=== PATIENT | male | born 1950 | race Caucasian/White ===

== ENCOUNTER 2017-04-18 12:34 | Emergency (ER) | payer MEDICARE, MEDICAID ==
[~2017-04-18] VITALS: Ht 165.1 cm; Wt 74.8 kg
[2017-04-18] MEDS ORDERED: LISI1TAB11 PO (12:51)
[2017-04-18] MEDS ORDERED: METF500T4 PO (12:51)
--- NOTE | 2017-04-18 13:14 | NUR ---
Dr Reinoso at the bedside for eval and exam.
[2017-04-18 13:30] LABS: BASOPHILS % (AUTO) 0.5 % (0.0-2.0); EOSINOPHILS # (AUTO) 0.2 K/uL (0.0-0.7); EOSINOPHILS % (AUTO) 2.8 % (0.0-7.0); HEMATOCRIT 49.3 % (40-50); HEMOGLOBIN 16.8 G/DL (14.0-18.0); LYMPHOCYTES # (AUTO) 1.9 K/UL (0.8-4.8); LYMPHOCYTES % (AUTO) 29.9 % (20.5-51.5); MEAN CORPUSCULAR HEMOGLOBIN 31.3 UUG (27.0-31.0); MEAN CORPUSCULAR HGB CONC 34 g/dL (32.0-37.0); MONOCYTES # (AUTO) 0.4 K/UL (0.1-1.30); MONOCYTES % (AUTO) 5.9 % (0.0-11.0); NEUTROPHILS # (AUTO) 3.9 K/UL (1.8-8.9); NEUTROPHILS % (AUTO) 60.9 % (38.5-71.5); PLATELET COUNT (AUTO) 166 K/UL (150-450); RED BLOOD CELL COUNT(AUTO) 5.37 MIL/UL (4.7-6.1); WHITE BLOOD COUNT (AUTO) 6.4 K/UL (4.0-11.2)
[2017-04-18 13:39] LABS: CREATININE 1.2 mg/dL (0.6-1.3)
[2017-04-18 13:44] LABS: BILIRUBIN,DIRECT 0.1 mg/dL (0.0-0.2); BILIRUBIN,TOTAL 0.7 mg/dL (0.2-1.0); TOTAL PROTEIN, SERUM 7.4 g/dL (6.4-8.2)
[2017-04-18 14:09] LABS: *BILIRUBIN,URIN NEGATIVE (NEGATIVE); *BLOOD, URINE NEGATIVE (NEGATIVE); *CLARITY,URINE CLEAR (CLEAR); *COLOR,URINE YELLOW (YELLOW); *KETONES,URINE NEGATIVE (NEGATIVE); *PROTEIN,URINE NEGATIVE (NEGATIVE); *UROBILINOGEN,URINE 0.2 E.U./dl (NORMAL); LEUKOCYTE ESTERASE ,URINE NEGATIVE (NEGATIVE); NITRITE, URINE NEGATIVE (NEGATIVE)
[2017-04-18 14:11] LABS: UGLUCOSE 2+ (NEGATIVE)
[2017-04-18 14:28] LABS: BACTERIA,URINE FEW /HPF (NONE SEEN); MUCUS,URINE MODERATE /LPF (0-FEW); RBC,URINE 0-3 /HPF (0-3); SQUAMOUS EPITHELIAL CELL,UR FEW /HPF (NONE SEEN); WBC,URINE 0-3 /HPF (0-3)
--- NOTE | 2017-04-18 14:37 | NUR ---
Patient discharged to home in stable conditon. Written and verbal after care instructions given. Patient verbalizes understanding of instructions.
[2017-04-18 14:38] VITALS: BP 120/77
== END 2017-04-18 14:38 | disposition home or self-care (01) ==
LOC: ER 12:45
DX: F03.90 Unspecified dementia, unspecified severity, without behavioral disturbance, psychotic disturbance, mood disturbance, and anxiety (principal); R55 Syncope and collapse; I67.2 Cerebral atherosclerosis; F32.9 Major depressive disorder, single episode, unspecified; F41.9 Anxiety disorder, unspecified; E11.9 Type 2 diabetes mellitus without complications; Z86.73 Personal history of transient ischemic attack (TIA), and cerebral infarction without residual deficits
CPT/HCPCS: 36415; 70450; 85025; A4663

== ENCOUNTER 2019-02-24 17:10 | Inpatient (IN) | payer MEDICARE, MEDICAID ==
[~2019-02-24] VITALS: Ht 172.7 cm; Wt 72.6 kg
[~2019-02-24 17:10] MED LIST: LISI1TAB11 PO; METF-440 PO
--- NOTE | 2019-02-24 17:16 | NUR ---
PT A/OX4, BIB FAMILY, C/O CHEST PRESSURE AND DIZZINESS X 1 WEEK. PT IS HYPOTENSIVE, ER MD NOTIFIED. PACEMAKER LOCATED ON LACW. NO FACIAL DROOP, CLEAR SPEECH, BILATERAL EYES PERRLA, BUE MASTER CARPENTER EQUAL, NO HEMILATERAL WEAKNESS. PT DENIES SOB, N/V/D, HEADACHE.
--- NOTE | 2019-02-24 17:18 | NUR ---
FLORENCE CROOKS AT BEDSIDE FOR MSE.
[2019-02-24] MEDS ORDERED: METF-442 PO (17:29)
[2019-02-24] MEDS ORDERED: DAPA5TAB PO (17:29)
[2019-02-24] MEDS ORDERED: IV NORMAL SALINE 1000 ML BAG IV ONE (17:30)
[2019-02-24] MEDS ORDERED: METOCLOPRAMIDE HCL 10 MG/2 ML VIAL IV ONE (17:30)
[2019-02-24 17:33] LABS: BASOPHILS # (AUTO) 0.1 K/uL (0.0-8.0); BASOPHILS % (AUTO) 1.1 % (0.0-2.0); EOSINOPHILS # (AUTO) 0.3 K/uL (0.0-0.7); EOSINOPHILS % (AUTO) 4.6 % (0.0-7.0); HEMATOCRIT 50.2 % (36.7-47.1); HEMOGLOBIN 17.4 g/dL (12.5-16.3); LYMPHOCYTES # (AUTO) 2.3 K/uL (20.0-40.0); LYMPHOCYTES % (AUTO) 37.9 % (20.5-51.5); MEAN CORPUSCULAR HEMOGLOBIN 32.2 uug (23.8-33.4); MEAN CORPUSCULAR HGB CONC 35 g/dL (32.5-36.3); MEAN CORPUSCULAR VOLUME 93.2 fL (73.0-96.2); MONOCYTES # (AUTO) 0.6 K/uL (2.0-10.0); MONOCYTES % (AUTO) 9.5 % (0.0-11.0); NEUTROPHILS # (AUTO) 2.8 K/uL (1.8-8.9); NEUTROPHILS % (AUTO) 46.9 % (38.5-71.5); PLATELET COUNT (AUTO) 173 K/uL (152-348); RED BLOOD CELL COUNT(AUTO) 5.39 MIL/uL (4.06-5.63)
[2019-02-24] MEDS ORDERED: METOCLOPRAMIDE HCL 10 MG/2 ML VIAL ONE (17:33)
[2019-02-24 17:52] LABS: BILIRUBIN,DIRECT 0.1 mg/dL (0.0-0.2); BILIRUBIN,TOTAL 0.4 mg/dL (0.2-1.0); TOTAL PROTEIN, SERUM 8.1 g/dL (6.4-8.2)
--- NOTE | 2019-02-24 18:18 | NUR ---
PAGED EPIC FOR PANEL CALL. AWAITING CALLBACK. ATTEMPT 1.
[2019-02-24] MEDS ORDERED: SWABABLE VALVE TRANSFER SET EA MC ONE (18:23)
[2019-02-24] MEDS ORDERED: IOHEXOL 300MG/ML 100 ML INFUS..BTL ONE (18:23)
[2019-02-24] MEDS ORDERED: IV NORMAL SALINE 250 ML IV ONE (18:23)
--- NOTE | 2019-02-24 18:25 | NUR ---
FLORENCE CROOKS AT BEDSIDE FOR PT UPDATE.
--- NOTE | 2019-02-24 18:28 | NUR ---
FLORENCE CROOKS SPEAKING W/ DR. LEDBETTER RE PT'S ADMISSION.
--- NOTE | 2019-02-24 18:47 | NUR ---
PT TAKEN TO RADIOLOGY FOR CT SCAN.
--- NOTE | 2019-02-24 19:05 | NUR ---
SHIFT REPORT GIVEN TO WONG Seth RN. PT STILL IN RADIOLOGY FOR CT SCAN.
--- NOTE | 2019-02-24 19:10 | NUR ---
Report received. Patient back from CT. AAO. Ambulated to the BR; no c/o chest pain or dizziness. Voided.
--- NOTE | 2019-02-24 19:45 | NUR ---
Report given to Aniyah RICHARDS. Dr. Martinez at bedside; talking to patient and patient's family. Still awaiting for CT abdomen result. Belonging list completed.
[2019-02-24 20:00] VITALS: BP 125/72
--- NOTE | 2019-02-24 20:07 | NUR ---
Pt. admitted to Tele, under care of Dr. Martinez. Dx: acute Pancreatitis. AAO. NAD noted. Belongs List completed.
--- NOTE | 2019-02-24 20:13 | NUR ---
removed heart monitor patient admit to medical surgical only not telemetry .dx:ACUTE PANCREATITIS .
[2019-02-24 20:40] VITALS: BP 156/71
--- NOTE | 2019-02-24 20:40 | NUR ---
received patient from ER dx:ACUTE PANCREATITIS . AAOX3/MAEX4,ambulated self to the BR voided ,steady of gait .oriented with room and equipment . placed heart monitor a-v paced on the heart monitor with hx: PACE MAKER PLACEMENT as per patient yesterday he was having on and off chest pressure/pain ,but today he said more on dizziness and the room was spinning . no diarrhea no abdominal pain last bm was this morning moderate in amt soft stool. instructed patient to call for assistance and to call for help . call light placed with reach . patient understands [place] speaks little [place] daughter at bedside help interpret . instructed aptient to be NPO with maintenance IVF of normal saline at 150ml/hr infusing via the right ac no .18. assessment done and checked labs and xray results .
[2019-02-24] MEDS: IV NS 1000 ML 1,000 ML IV PRN (20:51)
[2019-02-24] MEDS ORDERED: MAGNESIUM HYDROXIDE 30 ML LIQUID UDC PO PRN (21:00)
[2019-02-24] MEDS ORDERED: 3 PO PRN (21:00)
[2019-02-24] MEDS ORDERED: ONDANSETRON 4 MG/2 ML VIAL IV PRN (21:00)
[2019-02-24] MEDS ORDERED: Z GUARD REMEDY PASTE 57 GM TUBE TOP PRN (21:00)
--- NOTE | 2019-02-24 22:30 | NUR ---
patient in bed ,denies pain watching TV. and daughter at bedside .
--- NOTE | 2019-02-25 | NUR ---
sleeping in bed easily awakened when asked patient denies pain and verbalized his ok .
[2019-02-25 03:45] LABS: *BILIRUBIN,URIN NEGATIVE (NEGATIVE); *BLOOD, URINE NEGATIVE (NEGATIVE); *CLARITY,URINE CLEAR (CLEAR); *COLOR,URINE YELLOW (YELLOW); *KETONES,URINE NEGATIVE (NEGATIVE); *UROBILINOGEN,URINE 0.2 E.U./dl (NORMAL); LEUKOCYTE ESTERASE ,URINE NEGATIVE (NEGATIVE); NITRITE, URINE NEGATIVE (NEGATIVE); PH,URINE 6.5 (5.0-8.0)
[2019-02-25 03:48] LABS: UGLUCOSE 3+ (NEGATIVE)
[2019-02-25 04:02] LABS: BACTERIA,URINE NONE SEEN /HPF (NONE SEEN); RBC,URINE 0-3 /HPF (0-3); SQUAMOUS EPITHELIAL CELL,UR FEW /HPF (NONE SEEN); WBC,URINE 0-3 /HPF (0-3)
[2019-02-25] MEDS: IV NS 1000 ML 1,000 ML IV PRN ×2 (04:06→11:00)
--- NOTE | 2019-02-25 06:00 | NUR ---
patient in bed on and off asleep ,denies pain and no dizziness.slept most of the night able to turned and reposition self .maex4
[2019-02-25 06:11] VITALS: BP 115/73
[2019-02-25 06:33] LABS: BASOPHILS % (AUTO) 0.8 % (0.0-2.0); EOSINOPHILS # (AUTO) 0.2 K/uL (0.0-0.7); EOSINOPHILS % (AUTO) 4.7 % (0.0-7.0); HEMATOCRIT 45.9 % (36.7-47.1); HEMOGLOBIN 15.6 g/dL (12.5-16.3); LYMPHOCYTES # (AUTO) 1.6 K/uL (20.0-40.0); LYMPHOCYTES % (AUTO) 34.4 % (20.5-51.5); MEAN CORPUSCULAR HEMOGLOBIN 31.9 uug (23.8-33.4); MEAN CORPUSCULAR HGB CONC 34 g/dL (32.5-36.3); MONOCYTES # (AUTO) 0.5 K/uL (2.0-10.0); NEUTROPHILS # (AUTO) 2.3 K/uL (1.8-8.9); NEUTROPHILS % (AUTO) 50.1 % (38.5-71.5); PLATELET COUNT (AUTO) 159 K/uL (152-348); RED BLOOD CELL COUNT(AUTO) 4.89 MIL/uL (4.06-5.63); WHITE BLOOD COUNT (AUTO) 4.7 K/uL (3.6-10.2)
[2019-02-25 06:48] LABS: BILIRUBIN,TOTAL 0.4 mg/dL (0.2-1.0); PHOSPHOROUS 2.7 mg/dL (2.5-4.9); POTASSIUM 4.3 mmol/L (3.5-5.1); TOTAL PROTEIN, SERUM 6.2 g/dL (6.4-8.2)
[2019-02-25 11:03] VITALS: BP 114/69
[2019-02-25 15:27] VITALS: BP 138/74
--- NOTE | 2019-02-25 16:00 | NUR ---
Patient is d/c Paper work is overview and given to the patient, instructions given Belongings list signed Took patient by wheel chair to the car, is driving
== END 2019-02-25 16:15 | disposition home or self-care (01) | DRG 440 ==
LOC: ER 17:10 → TELE3 20:15 → MEDSURG3 21:43
PROVIDERS: ADMIT Internal Medicine; ATTEND Internal Medicine
DX: K85.20 Alcohol induced acute pancreatitis without necrosis or infection (principal); E78.5 Hyperlipidemia, unspecified; Z86.73 Personal history of transient ischemic attack (TIA), and cerebral infarction without residual deficits; E11.65 Type 2 diabetes mellitus with hyperglycemia; Z79.84 Long term (current) use of oral hypoglycemic drugs; N40.0 Benign prostatic hyperplasia without lower urinary tract symptoms; Z95.0 Presence of cardiac pacemaker; I11.9 Hypertensive heart disease without heart failure; H55.00 Unspecified nystagmus; F10.10 Alcohol abuse, uncomplicated; Y90.9 Presence of alcohol in blood, level not specified
CPT/HCPCS: 36415; 70030-TC; 71045; 83690; 83735; 84100; 85025; 85730; 93005; A4663; G0378; J2765; J7030; J7040; J7050; Q9967